=== PATIENT | female | born 1990 | race American Indian/Alaskan Native ===

== ENCOUNTER 2018-03-30 10:29 | Emergency (ER) | payer SELFPAY ==
[2018-03-30 11:03] VITALS: BP 127/93
[2018-03-30 13:38] LABS: Bilirubin,Urine NEG (Negative); Blood,Urine NEG (Negative); Color,Urine Yellow (Yellow); Mucus,Urine FEW /HPF; Protein,Urine <15 mg/dL mg/dL (Negative)
[2018-03-30 13:45] LABS: HCG Qualitative,Urine Negative (Negative)
== END 2018-03-30 12:32 ==
LOC: ED 10:29
DX: R10.9 Unspecified abdominal pain (principal); Z53.21 Procedure and treatment not carried out due to patient leaving prior to being seen by health care provider
CPT/HCPCS: 81001; 81025

== ENCOUNTER 2020-03-11 00:34 | Emergency (ER) | payer MEDICAID ==
--- NOTE | 2020-03-11 01:35 | XRay Report ---
CHEST 1 VIEW INDICATION / CLINICAL INFORMATION: Chest Pain. COMPARISON: None available. FINDINGS: SUPPORT DEVICES: None. HEART / MEDIASTINUM: No significant abnormality. LUNGS / PLEURA: No significant pulmonary or pleural abnormality. No pneumothorax. ADDITIONAL FINDINGS: No significant additional findings. IMPRESSION: 1. No acute findings. Signer Name: Emmett Nascimento MD Signed: 03/11/2020 1:30 AM Workstation Name: [email or web address]
[2020-03-11] MEDS ORDERED: SODIUM CHLORIDE 0.9% 1000 ML 1,000 ML IV ONE (02:28)
--- NOTE | 2020-03-11 02:34 | Emergency Department Report ---
HPI - General Chief Complaint: Chest Pain Time Seen by Provider: 03/11/20 02:17 - HPI HPI: Room 26 The patient is a 29-year-old female present with a chief complaint of chest pain and palpitations. The patient states for 4 weeks she has had intermittent palpitations and chest pain occasionally associated with shortness of breath. Patient states she went to see her primary physician and then her control systems designer when turned put her on a Holter monitor 4 days ago. The patient states she has an appointment to see the control systems designer tomorrow but she again developed palpitations and chest pain. Patient admits to occasional pleurisy. Patient denies any recent flights or long car trips. Patient denies cough or fever. Patient denies contact with known COVID-19 patients ED Past Medical Hx - Past Medical History Previous Medical History?: No Additional medical history: Vagina; delivery x 3, Hx of several diagnosis of bacterial vaginosis - Surgical History Past Surgical History?: Yes Additional Surgical History: LEEP - Family History Family history: no significant - Social History Smoking Status: Never Smoker Substance Use Type: None (Denies illicit drug use), Alcohol (Occasional) - Medications Home Medications: Home Medications Medication Instructions Recorded Confirmed Last Taken Type metroNIDAZOLE [Flagyl] 500 mg PO Q12HR #14 tab 07/02/18 Unknown Rx ED Review of Systems ROS: Stated complaint: CHEST PAIN Other details as noted in HPI Constitutional: denies: fever Respiratory: shortness of breath Cardiovascular: chest pain, palpitations Endocrine: no symptoms reported Physical Exam - Physical Exam Vital Signs: Vital Signs 03/11/20 00:46 Temperature 98.6 F Pulse Rate 120 H Respiratory 16 Rate Blood Pressure 121/89 O2 Sat by Pulse 97 Oximetry Vital Signs 03/11/20 03/11/20 03/11/20 00:46 02:53 03:48 Temperature 98.6 F 98 F Pulse Rate 120 H 88 Respiratory 16 16 16 Rate Blood Pressure 121/89 Blood Pressure 113/73 [Left] O2 Sat by Pulse 97 100 100 Oximetry Physical Exam: GENERAL: The patient is well-developed well-nourished female lying on stretcher not appearing to be in acute distress. [] HEENT: Normocephalic. Atraumatic. Extraocular motions are intact. Patient has moist mucous membranes. NECK: Supple. Trachea midline CHEST/LUNGS: Clear to auscultation. There is no respiratory distress noted. HEART/CARDIOVASCULAR: Regular. There is no tachycardia. There is no gallop rub or murmur. ABDOMEN: Abdomen is soft, nontender. Patient has normal bowel sounds. There is no abdominal distention. SKIN: There is no rash. There is no diaphoresis. NEURO: The patient is awake, alert, and oriented. The patient is cooperative. The patient has normal speech MUSCULOSKELETAL: There is no evidence of acute injury. ED Course Vital Signs 03/11/20 00:46 Temperature 98.6 F Pulse Rate 120 H Respiratory 16 Rate Blood Pressure 121/89 O2 Sat by Pulse 97 Oximetry ED Medical Decision Making - Lab Data Result diagrams: 03/11/20 02:37 03/11/20 02:37 Laboratory Tests 03/11/20 03/11/20 03/11/20 02:37 02:37 02:37 WBC 4.3 L RBC 4.82 Hgb 12.6 Hct 36.3 MCV 75 L MCH 26 L MCHC 35 H RDW 14.6 Plt Count 239 Lymph % (Auto) 38.2 H [place]bour % (Auto) 8.6 H Eos % (Auto) 2.7 Baso % (Auto) 1.1 Lymph # 1.6 Barbour # 0.4 Eos # 0.1 Baso # 0.0 Seg Neutrophils % 49.4 Seg Neutrophils # 2.1 D-Dimer 135.00 Sodium 140 Potassium 4.3 Chloride 105.3 Carbon Dioxide 26 Anion Gap 13 BUN 18 H Creatinine 0.8 Estimated GFR > 60 BUN/Creatinine Ratio 23 Glucose 94 Calcium 9.2 Total Creatine Kinase 137 H CK-MB (CK-2) 1.3 CK-MB (CK-2) Rel Index 0.9 Troponin T NT-Pro-B Natriuret Pep TSH Free T4 HCG, Qual 03/11/20 03/11/20 03/11/20 02:37 02:37 02:37 WBC RBC Hgb Hct MCV MCH MCHC RDW Plt Count Lymph % (Auto) Barbour % (Auto) Eos % (Auto) Baso % (Auto) Lymph # Barbour # Eos # Baso # Seg Neutrophils % Seg Neutrophils # D-Dimer Sodium Potassium Chloride Carbon Dioxide Anion Gap BUN Creatinine Estimated GFR BUN/Creatinine Ratio Glucose Calcium Total Creatine Kinase CK-MB (CK-2) CK-MB (CK-2) Rel Index Troponin T < 0.010 NT-Pro-B Natriuret Pep 31.65 TSH 1.950 Free T4 1.26 HCG, Qual Negative - EKG Data -: EKG Interpreted by Me EKG shows normal: sinus rhythm Rate: tachycardia - EKG Data When compared to previous EKG there are: previous EKG unavailable Interpretation: other (No ischemic changes seen) - Radiology Data Radiology results: report reviewed (Chest x-ray), image reviewed (Chest x-ray) interpreted by me: Chest x-ray-no focal infiltrates, no pneumothorax [facility] [address] [place] [address] XRay Report Signed Patient: JILLIAN MONET MR#: [id number] : [birth year] Acct:[id number] Age/Sex: 29 / F ADM Date: 03/11/20 Loc: ED Attending Dr: Ordering Physician: ED MD FELTON Date of Service: 03/11/20 Procedure(s): XR chest 1V ap Accession Number(s): [id number] cc: ED MD FELTON Fluoro Time In Minutes: CHEST 1 VIEW INDICATION / CLINICAL INFORMATION: Chest Pain. COMPARISON: None available. FINDINGS: SUPPORT DEVICES: None. HEART / MEDIASTINUM: No significant abnormality. LUNGS / PLEURA: No significant pulmonary or pleural abnormality. No pneumothorax. ADDITIONAL FINDINGS: No significant additional findings. IMPRESSION: 1. No acute findings. Signer Name: Emmett Nascimento MD Signed: 03/11/2020 1:30 AM Workstation Name: [id number] Transcribed By: BC Dictated By: Emmett Nascimento MD Electronically Authenticated By: Emmett Nascimento MD Signed Date/Time: 03/11/20129 DD/ 9 TD/TT: - Differential Diagnosis Tachycardia, hyperthyroidism, PE, dysrhythmia, SVT Critical care attestation.: If time is entered above; I have spent that time in minutes in the direct care of this critically ill patient, excluding procedure time. ED Disposition Clinical Impression: Palpitations, Atypical chest pain Disposition: DC-01 TO HOME OR SELFCARE Is pt being admited?: No Does the pt Need Aspirin: No Condition: Stable Instructions: Chest Pain (ED), Palpitations (ED) Additional Instructions: Return to the emergency department should you develop worsening symptoms, inability to tolerate food or liquids, high fever or any other concerns Referrals: PRIMARY CARE, [Primary Care Provider] - 3-5 Days Time of Disposition: 03:56
[2020-03-11 02:52] LABS: Basophils % (Auto) 1.1 % (0.0-1.8); Eosinophils # (Auto) 0.1 K/mm3 (0.0-0.4); Eosinophils % (Auto) 2.7 % (0.0-4.3); Hematocrit 36.3 % (30.3-42.9); Hemoglobin 12.6 gm/dl (10.1-14.3); Lymphocytes # (Auto) 1.6 K/mm3 (1.2-5.4); Lymphocytes % (Auto) 38.2 % (13.4-35.0); Mean Corpuscular HGB Conc 35 % (30-34); Mean Corpuscular Volume 75 fl (79-97); Monocytes # (Auto) 0.4 K/mm3 (0.0-0.8); Monocytes % (Auto) 8.6 % (0.0-7.3); Platelet Count 239 K/mm3 (140-440); Red Blood Count 4.82 M/mm3 (3.65-5.03); Red Cell Distribution Width 14.6 % (13.2-15.2)
[2020-03-11 03:11] LABS: Creatine Kinase MB 1.3 ng/mL (0.0-4.0)
[2020-03-11 03:14] LABS: BUN/Creatinine Ratio 23; Blood Urea Nitrogen 18 mg/dL (7-17); Calcium 9.2 mg/dL (8.4-10.2); Hemolysis Index 11
[2020-03-11 03:22] LABS: Free T4 (Free Thyroxine) 1.26 ng/dL (0.76-1.46)
[2020-03-11 03:51] VITALS: BP 113/73
== END 2020-03-11 04:49 | disposition home or self-care (01) ==
LOC: ED 00:34
DX: R00.2 Palpitations (principal); R07.89 Other chest pain; Z79.899 Other long term (current) drug therapy
CPT/HCPCS: 36415; 71045; 80048; 82550; 82553; 83880; 84439; 84443; 84484; 84703; 85025; 85379; 93005; 99284; J7030

== ENCOUNTER 2020-04-18 23:57 | Emergency (ER) | payer MEDICAID ==
[2020-04-19 00:09] VITALS: BP 142/87
== END 2020-04-19 00:10 | disposition left against medical advice (07) ==
LOC: ED 23:57
DX: R07.89 Other chest pain (principal); Z53.21 Procedure and treatment not carried out due to patient leaving prior to being seen by health care provider
CPT/HCPCS: 93005

== ENCOUNTER 2020-07-03 02:09 | Emergency (ER) | payer MEDICAID ==
[2020-07-03 02:44] VITALS: BP 128/87
== END 2020-07-03 07:32 | disposition left against medical advice (07) ==
LOC: ED 02:09
DX: J02.9 Acute pharyngitis, unspecified (principal); Z53.21 Procedure and treatment not carried out due to patient leaving prior to being seen by health care provider

== ENCOUNTER 2020-11-17 13:33 | Emergency (ER) | payer MEDICAID ==
[2020-11-17 13:55] VITALS: BP 131/97
--- NOTE | 2020-11-17 14:15 | Emergency Department Report ---
ED Upper Extremity Inj HPI - General Chief Complaint: Extremity Injury, Upper Stated Complaint: FINGER LAC Time Seen by Provider: 11/17/20 14:08 Source: patient Mode of arrival: Ambulatory Limitations: No Limitations - History of Present Illness Initial Comments: 30-year-old female presents to the emergency room emergency room stating that approximately 1 hour ago she was cutting butter and lacerated her index finger. Bleeding is well controlled she states that her tetanus is up-to-date no other injuries. Complaint: Injury to:: left -: hour(s) Other Extremity Injury: Fingers: Left (Left index finger) Other Injuries: none Place: home Improves With: none Worsens With: none Context: laceration (With a knife at home accidentally) Associated Symptoms: denies other symptoms Treatments Prior to Arrival: bandage - Related Data Previous Rx's Medication Instructions Recorded Last Taken Type metroNIDAZOLE [Flagyl] 500 mg PO Q12HR #14 tab 07/02/18 Unknown Rx Allergies Allergy/AdvReac Type Severity Reaction Status Date / Time No Known Allergies Allergy Verified 03/30/18 10:59 ED Review of Systems ROS: Stated complaint: FINGER LAC Other details as noted in HPI Comment: All other systems reviewed and negative Constitutional: no symptoms reported ENT: denies: ear pain Respiratory: no symptoms reported Cardiovascular: denies: chest pain Endocrine: no symptoms reported Gastrointestinal: denies: abdominal pain, nausea, vomiting Skin: other (Left index finger laceration) Neurological: denies: headache, weakness, numbness ED Past Medical Hx - Past Medical History Previous Medical History?: Yes Additional medical history: Vagina; delivery x 3, Hx of several diagnosis of bacterial vaginosis, Heart irregular beat - Surgical History Past Surgical History?: Yes Additional Surgical History: LEEP - Social History Smoking Status: Never Smoker Substance Use Type: None - Medications Home Medications: Home Medications Medication Instructions Recorded Confirmed Last Taken Type metroNIDAZOLE [Flagyl] 500 mg PO Q12HR #14 tab 07/02/18 Unknown Rx ED Physical Exam - General Limitations: No Limitations General appearance: alert, in no apparent distress - Head Head exam: Present: atraumatic - Eye Eye exam: Present: normal appearance - ENT ENT exam: Present: normal exam - Neck Neck exam: Present: normal inspection - Respiratory Respiratory exam: Present: normal lung sounds bilaterally - Cardiovascular Cardiovascular Exam: Present: regular rate, normal heart sounds - Extremities Exam Extremities exam: Present: full ROM, other (Left index finger laceration approximately 1.5 cm superficial wound no signs of tendon injury full range of motion of her finger) - Back Exam Back exam: Present: normal inspection - Neurological Exam Neurological exam: Present: alert, oriented X3 - Psychiatric Psychiatric exam: Present: normal affect - Skin Skin exam: Present: warm, dry ED Course Vital Signs 11/17/20 13:53 Temperature 98.4 F Pulse Rate 76 Respiratory 20 Rate Blood Pressure 131/97 O2 Sat by Pulse 99 Oximetry - Reevaluation(s) Reevaluation #1: 11/17/20 15:30 Wound closed with Dermabond patient tolerated well - Laceration /Wound Repair Left Finger Wound Location: upper extremity Wound Length (cm): 1 Wound's Depth, Shape: superficial, linear Wound Explored: no foreign body removed Betadine Prep?: Yes (Finger soaked for 15 minutes in Betadine and saline) Wound Repaired With: Dermabond Sterile Dressing Applied?: Yes Progress: Left index finger distal phalanx pad of finger 1 cm superficial laceration. Wound closed with Dermabond after 15-minute Betadine and saline soak patient tolerated well she is moving her finger without limitations. wound examined there is no signs of tendon injury. Patient tolerated procedure well ED Medical Decision Making - Medical Decision Making 30-year-old female sustained a superficial finger laceration at home while attempting to cut butter. Laceration located to the pad of the left index finger approximately 1 cm in length patient wound soaked in half Betadine half saline for 15 minutes. Then wound closed with Dermabond and sterile dressing applied after patient tolerated well there are no signs of tendon injury she is able to bend and flex. Wound care instructions given patient to follow-up as needed - Differential Diagnosis Finger laceration Critical Care Time: No Critical care attestation.: If time is entered above; I have spent that time in minutes in the direct care of this critically ill patient, excluding procedure time. ED Disposition Clinical Impression: Finger laceration Qualifiers: Encounter type: initial encounter Finger: index finger Damage to nail status: without damage Foreign body presence: without foreign body Laterality: left Qualified Code(s): S61.211A - Laceration without foreign body of left index finger without damage to nail, initial encounter Disposition: TO HOME OR SELFCARE Is pt being admited?: No Does the pt Need Aspirin: No Condition: Stable Instructions: Laceration Care, Adult, Sutures, [place], or Adhesive Wound Closure, [id number] Additional Instructions: Keep wound clean and dry. Keep dressing on for 24 hours then change dressing daily. Dermabond will dissolve on its own watch out for any increasing pain swelling redness or drainage follow-up with your PCP as needed. take [id number] Tylenol or Advil as needed for pain Referrals: PRIMARY CARE, [Primary Care Provider] - 3-5 Days Time of Disposition: 15:04
[2020-11-17] MEDS ORDERED: IBUPROFEN 800 MG TAB PO ONE (15:00)
== END 2020-11-17 15:16 | disposition home or self-care (01) ==
LOC: ED 13:33
DX: S61.211A Laceration without foreign body of left index finger without damage to nail, initial encounter (principal); Z79.899 Other long term (current) drug therapy; W45.8XXA Other foreign body or object entering through skin, initial encounter; Y93.89 Activity, other specified; Y92.89 Other specified places as the place of occurrence of the external cause; Y99.8 Other external cause status
CPT/HCPCS: 99282